=== PATIENT | female | born 1985 | race Caucasian/White ===

== ENCOUNTER 2022-04-18 08:08 | Outpatient (CLI) | payer BC, SELFPAY ==
[2022-04-18 08:48] LABS: Basophils Percent Auto 0.5 % (0.2-1.2); Eosinophils Absolute Auto 0.1 K/mm3 (0-0.3); Eosinophils Percent Auto 1.5 % (0-4.4); Hematocrit 30.6 % (37.0-47.0); Hemoglobin 8.9 g/dL (12.0-15.0); Immature Granulocyte Absolute 0.03 K/mm3 (0.00-0.031); Immature Granulocyte Percent A 0.4 % (0-0.5); Lymphocytes Absolute Auto 1.65 K/mm3 (0.9-3.2); Lymphocytes Percent Auto 21.1 % (18.3-44.2); Mean Corpuscular HGB Conc 29.1 g/dl (32-36); Mean Corpuscular Volume 68.9 fl (80-100); Mean Platelet Volume 9.4 fl (7.4-10.4); Monocytes Absolute Auto 0.6 K/mm3 (0.1-0.6); Neutrophils Absolute Auto 5.4 K/mm3 (1.3-6.7); Neutrophils Percent Auto 69.5 % (45.5-73.1); Platelet Count Result 330 k/mm3 (150-375); Red Blood Count 4.44 M/mm3 (4.2-5.4); Red Cell Distribution Width 16.2 % (11.5-14.5); White Blood Count 7.8 K/mm3 (4.5-10.0)
[2022-04-18 09:02] LABS: Alanine Aminotransferase 16 U/L (6-35); Albumin Level 4.5 g/dL (3.5-5.1); Alkaline Phosphatase 69 U/L (38-126); Anion Gap 9 mmol/L (8-16); Aspartate Amino Transferase 19 U/L (14-36); Bilirubin,Total 0.5 mg/dL (0.2-1.3); Blood Urea Nitrogen 11 mg/dL (7-17); Calcium 9.1 mg/dL (8.4-10.2); Carbon Dioxide 26 mmol/L (22-30); Chloride 105 mmol/L (98-107); Cholesterol 157 mg/dL (0-200); Estimated Glomerular Filt Rate > 60; Glucose 93 mg/dL (65-110); HDL Direct 36 mg/dL; Potassium 4.1 mmol/L (3.4-5.0); Sodium 140 mmol/L (137-145); Triglycerides 106 mg/dL (<150)
[2022-04-18 09:05] LABS: Hemoglobin A1C 5.6 % (<5.7)
[2022-04-18 09:13] LABS: LDL Cholesterol Direct 95 mg/dL
[2022-04-18 09:15] LABS: Beta HCG Quantitative < 2.39 mIU/ML
[2022-04-18 10:41] LABS: Hypochromasia 1+ (NORMAL); Ovalocytes 1+ (NORMAL); Platelet Estimate Adequate (Adequate); Poikilocytosis 1+ (NORMAL); Schistocytes None Seen (NORMAL)
[2022-04-23 14:40] LABS: Testosterone Free 1.8 pg/mL (0.1-6.4); Testosterone Total 19 ng/dL (2-45)
[2022-04-24 20:53] LABS: FSH 7.9 mIU/mL (***)
[2022-04-25 21:17] LABS: Estradiol, Ultrasensitive 49 pg/mL
== END 2022-04-18 08:09 | disposition home or self-care (01) ==
PROVIDERS: Visit Provider Obstetrics & Gynecology
DX: Z00.00 Encounter for general adult medical examination without abnormal findings (principal); N92.0 Excessive and frequent menstruation with regular cycle
CPT/HCPCS: 36415; 80053; 80061; 82670; 83001; 83036; 84144; 84146; 84402; 84403; 84702; 85025

== ENCOUNTER 2022-06-11 08:02 | Outpatient (CLI) | payer BC, SELFPAY ==
[2022-06-11 09:29] LABS: Beta HCG Quantitative < 2.39 mIU/ML
== END 2022-06-11 08:03 | disposition home or self-care (01) ==
LOC: ANHLAB 08:03
PROVIDERS: Visit Provider Obstetrics & Gynecology
DX: N92.6 Irregular menstruation, unspecified (principal)
CPT/HCPCS: 36415; 84702

== ENCOUNTER 2025-01-24 14:32 | Outpatient (CLI) | payer BC, SELFPAY ==
--- NOTE | ~2025-01-24 | MM_ITS ---
EXAMINATION: MM screening ariana BI w elena HISTORY: Screening TECHNIQUE: Craniocaudal and mediolateral oblique 3-D tomosynthesis images were obtained and synthetic 2-D images were generated. CAD analysis was submitted and interpreted. COMPARISON: No prior mammogram is available for comparison at this institution. BREAST PARENCHYMAL COMPOSITION: Not dense: There are scattered areas of fibroglandular density. FINDINGS: There is no evidence of suspicious mass, calcification, or architectural distortion to sugg est malignancy in either breast. There has been no suspicious interval change. IMPRESSION: 1. No mammographic evidence of malignancy. 2. Recommend routine screening mammography in one year. BI-RADS Category 1: Negative Reviewed, dictated and finalized at location B.
--- OUTSIDE RECORDS SUMMARY | 2025-01-24 14:36 | XMS_ITS | Referral Summary ---
Author Organization [address] Address [address] [place] [phone] Care Team Providers Care Manager Community Name Role Phone Unknown, Notinfile Primary Care Provider Unavail able Encounters Date Type Department Care Team Description 12/19/2024 10:15 AM CDT Telemedicine [facility] [address] [place] [phone] Soraida Cyr NP Acute non-recurrent pansinusitis (Primary Dx); Right ear pain 12/19/2024 Patient Self-Triage [facility] [address] [place] [address] Mychart, Generic Provider from Last 3 Months Allergies No known active allergies Medications methylPREDNISol one (MEDROL DOSEPACK) 4 mg Dosepack follow package directions 1 packet 5 Active amoxicillin-cla vulanate (AUGMENTIN) 875-125 mg per tablet Take 1 tablet by mouth 2 (two) times a day for 10 days 20 tablet 5 12/30/19 25 Active Problems No known active problems Social History Tobacco Use Types Packs/Day Years Used Date Smoking Tobacco: Never Assessed Comments Unknown Sex and Gender Information Value Date Recorded Sex Assigned at Not on file Legal Sex Female 6:19 PM CDT Gender Identity Female 12/19/2024 10:06 AM CDT Sexual Orientation Not on file Last Filed Vital Signs Vital Sign Reading Time Taken Comments Blood Pressure 127/85 10/02/2024 10:08 AM CDT Pulse 104 10/02/2024 10:08 AM CDT Temperature 37 C (98.6 F) 10/02/2024 10:08 AM CDT Respiratory Rate 18 10/02/2024 10:08 AM CDT Oxygen Saturation 95% 10/02/2024 10:08 AM CDT Inhaled Oxygen Concentration - - Weight 108.2 kg (238 lb 8 oz) 10/02/2024 10:08 A M CDT Height 167.6 cm (5' 6) 10/02/2024 10:08 AM CDT Body Mass Index 38.49 10/02/2024 10:08 AM CDT Plan of Treatment Not on file Insurance COUNT INCLUDES THE [facility] ACCESS CHOICE Care Teams Manager Community Relationship Specialty Start Date End Date Unknown, Notinfile PCP - General 10/01/24
--- OUTSIDE RECORDS SUMMARY | 2025-01-24 14:36 | XMS_ITS | Clinical Summary ---
Author Organization [address] Address [address] [place] [phone] Care Team Providers Care Barrel Roller Operator Name Role Phone Unknown, Notinfile Primary Care Provider Unavail able Allergies No known active allergies Medications methylPREDNISol one (MEDROL DOSEPACK) 4 mg Dosepack follow package directions 1 packet 5 Active amoxicillin-cla vulanate (AUGMENTIN) 875-125 mg per tablet Take 1 tablet by mouth 2 (two) times a day for 10 days 20 tablet 5 12/30/19 25 Active Problems No known active problems Encounters Date Type Department Care Team Description 12/19/2024 10:15 AM CDT Telemedicine [facility] [address] [place] [phone] Soraida Cyr NP Acute non-recurrent pansinusitis (Primary Dx); Right ear pain 12/19/2024 Patient Self-Triage [facility] [address] [place] [address] Mychart, Generic Provider from Last 3 Months Medical History Medical History Date Comments Patient denies medical problems Social History Tobacco Use Types Packs/Day Years Used Date Smoking Tobacco: Never Assessed Comments Unknown Sex and Gender Information Value Date Recorded Sex Assigned at Not on file Legal Sex Female 6:19 PM CDT Gender Identity Female 12/19/2024 10:06 AM CDT Sexual Orientation Not on file Obstetrics History Last Filed Vital Signs Vital Sign Reading [...] 10/02/2024 10:08 AM CDT Plan of Treatment Health Maintenance Due Date Last Done Comments Breast Cancer Screening-Mammogram 1984 Cervical Cancer Screening 1984 Depression Screening 1984 Hepatitis C Screening 1984 DTaP/Tdap/Td Vaccine (1 - Tdap) 1995 Varicella Vaccines (1 of 2 - 13+ 2-dose series) 1997 Hepatitis B Screening 2002 Regular Well Visit/Exam 18-64 2002 HPV Vaccines (1 - 3-dose SCD M series) 2011 Influenza Vaccine (#1) 2025 Pneumococcal vaccine <65 Aged Out No longer eligible based on patient's age to complete this topic Insurance [facility] ACCESS CHOICE Care Teams Barrel Roller Operator Relationship Specialty Start Date End Date Unknown, Notinfile PCP - General 10/01/24
== END 2025-01-24 14:33 | disposition home or self-care (01) ==
LOC: CHSIMG 14:33
PROVIDERS: PCP Obstetrics & Gynecology; Visit Provider Obstetrics & Gynecology
DX: Z12.31 Encounter for screening mammogram for malignant neoplasm of breast (principal)
CPT/HCPCS: 77063; 77067